=== PATIENT | female | born 1995 | race Caucasian/White ===

== ENCOUNTER 2022-12-21 13:15 | Emergency (ER) | payer OTHER, SELFPAY ==
[2022-12-21 13:17] VITALS: BP 139/105; PULSE 121; RESP 18; TEMP 36.8; O2SAT 100
--- NOTE | 2022-12-21 13:27 | ED.URI ---
HPI - URI/Sore Throat General Chief Complaint: Upper Respiratory Infection Stated Complaint: Sore Throat Time Seen by Provider: 12/21/22 13:35 Source: patient and RN notes reviewed Mode of arrival: ambulatory Limitations: no limitations History of Present Illness HPI Narrative: 27-year-old female presents with concern for sore throat, swollen right tonsil. Reports symptoms started 2 days ago. Reports she had strep throat 2 months ago that she completed antibiotics for. She denies any known sick contacts MD elicited complaint: sore throat Related Data Home Medications Medication Instructions Recorded Confirmed dextroamphetamine-amphetamine 10 12/21/22 mg tablet dextroamphetamine-amphetamine ER PO 12/21/22 25 mg 24hr capsule,extend release (Adderall XR) Allergies Allergy/AdvReac Type Severity Reaction Status Date / Time No Known Allergies Allergy Verified 12/21/22 13:31 Review of Systems Review of Systems: CONSTITUTIONAL: Denies malaise, chills, sweats, or fever. EYES: Denies visual changes, redness, or discharge. ENT: Denies rhinorrhea, congestion, sinus pain, otalgia. Reports sore throat. CARDIOVASCULAR: Denies chest pain, palpitations, or edema. RESPIRATORY: Denies cough. Denies dyspnea. GASTROINTESTINAL: Denies abdominal pain, nausea, vomiting, diarrhea SKIN: Denies rash or itching. MUSCULOSKELETAL: Denies myalgia. NEUROLOGIC: Denies headache. All systems reviewed & are unremarkable except as noted in HPI and below PMFSH Comments At time of signature, agree with nursing past medical, surgical, social and family history. There is no relevant family history pertinent to the presenting complaint Exam Narrative: GENERAL: Well-appearing, well-nourished, and in no acute distress. HEAD: Normocephalic EYES: PERRLA, conjunctivae clear ENT: Nares clear. Mucous membranes moist. TM pearly lawson with sharp light reflex bilaterally; no tragal tenderness. Oropharynx erythematous without lesions. Tonsils enlarged on the right side without exudate, no drooling, no hoarseness, no trismus, uvula midline. NECK: Supple. No lymphadenopathy CHEST: Clear to auscultation, breath sounds equal. No wheezing, rhonchi, rales, or stridor. No respiratory distress, speaks in full sentences. HEART: Regular rate and rhythm. No murmur heard. SKIN: Warm, dry, no rash. NEURO: Alert and oriented x3. PSYCH: Normal mood and affect Course Course Emergency Course: Patient is aware of diagnosis, understands and agrees to treatment plan. Anticipatory guidance given. Patient agrees to follow-up as directed and is aware of reasons to seek care at the emergency department. Portions of this record may have been created with voice recognition software Level of Care: Express Care Visit Vital Signs Vital signs: Reviewed. MDM - URI/Sore Throat MDM Narrative Medical decision making narrative: Differential diagnosis considered: [place] virus, strep pharyngitis, allergic rhinitis, upper respiratory tract infection, sinusitis, rhinosinusitis, nasopharyngitis. viral pharyngitis, otitis media, otitis externa, pneumonia, bronchitis, viral cough syndrome, viral syndrome, and influenza. Exam findings show no acute concerns or changes; patient is non-toxic appearing and is in no distress. Patient is appropriate for outpatient treatment and follow-up. Lab Data Attestation: I reviewed the patient's lab results. Critical Care Time Critical Care Time Critical Care Time: No Discharge Plan Discharge Clinical Impression: Acute streptococcal pharyngitis Patient Disposition: Home, Self-Care Condition: Stable Instructions: Antibiotic Form, Strep Throat (ED) Additional Instructions: -Take the medication as prescribed. Throw away the toothbrush after 24hours of antibiotic. -Eat and drink things that are easy to swallow, like tea or soup, or popsicles to suck on. -Oral rinses such as: Salt water gargles and/or may use topical ane
[2022-12-21 13:32] VITALS: BP 139/105; PULSE 121; RESP 18; TEMP 36.8; O2SAT 100
== END 2022-12-21 13:52 | disposition home or self-care (01) ==
PROVIDERS: Emergency Provider Nurse Practitioner; PCP Family Medicine
DX: J02.0 Streptococcal pharyngitis (principal)
CPT/HCPCS: 87880; 99213; G0463

== ENCOUNTER 2023-11-09 11:15 | Emergency (ER) | payer OTHER, SELFPAY ==
[2023-11-09 11:25] VITALS: BP 125/85; PULSE 106; RESP 16; TEMP 36.8; O2SAT 100
--- NOTE | 2023-11-09 11:32 | ED.EAR ---
HPI - Ear Problem General Chief complaint: Ear Stated complaint: rt ear pain Time Seen by Provider: 11/09/23 11:32 Source: patient Mode of arrival: ambulatory Limitations: no limitations History of Present Illness HPI Narrative: 27-year-old female presents with complaint of a clogged sensation decreased hearing to right ear for the past several days. Has taking Mucinex and Claritin with no relief of symptoms. Afebrile. Not painful all systems reviewed and negative except as noted above. Related Data Home Medications Medication Instructions Recorded Confirmed dextroamphetamine-amphetamine 10 12/21/22 mg tablet dextroamphetamine-amphetamine ER PO 12/21/22 25 mg 24hr capsule,extend release (Adderall XR) Allergies Allergy/AdvReac Type Severity Reaction Status Date / Time No Known Allergies Allergy Verified 11/09/23 11:28 Review of Systems Review of Systems: CONSTITUTIONAL: Denies fever, chills, or sweats. EYES: Denies visual changes, redness, or discharge. ENT: Denies rhinorrhea, congestion, sore throat . Reports decreased hearing and plugged sensation to right ear. CARDIOVASCULAR: Denies chest pain, palpitations, or edema. RESPIRATORY: Denies cough or dyspnea. GASTROINTESTINAL: Denies abdominal pain, nausea, vomiting, or diarrhea. GENITOURINARY: Denies dysuria or hematuria. SKIN: Denies rash or itching. MUSCULOSKELETAL: Denies back pain, joint pain, or myalgia. NEUROLOGIC: Denies headache, numbness, or weakness. PSYCHIATRIC: Denies anxiety or depression. All other systems reviewed are negative, except as documented in HPI. PMFSH Comments At time of signature, agree with nursing past medical, surgical, social and family history. There is no relevant family history pertinent to the presenting complaint. Exam Narrative: GENERAL: This is a well-nourished, well-developed patient, in no apparent distress. HEAD: normocephalic, atraumatic. EYES: PERRL. Sclera clear/white. Vision is grossly intact. EARS: External ears normal, L ear canal normal,moderate amount soft cerumen to R ear canal,after irrigation TMs normal without perforation. Hearing grossly intact. NOSE: External nose normal NECK: Neck supple, non-tender without lymphadenopathy, masses or thyromegaly. CARDIOVASCULAR: Regular rate and rhythm without murmurs, gallops, or rubs. RESPIRATORY: Clear to auscultation. Breath sounds equal bilaterally. No wheezes, rales, or rhonchi. SKIN: warm, Dry, intact with no suspicious lesions or rash, good texture and turgor. NEURO: awake, alert, and oriented to person, place and time. There were no obvious focal neurologic abnormalities. EXTREMITIES: No joint tenderness, effusion, or edema noted. Course Course Level of Care: Express Care Visit Vital Signs Vital signs: Vital Signs Temperature 36.8 C 11/09/23 11:25 Pulse Rate 106 H 11/09/23 11:25 Respiratory Rate 16 11/09/23 11:25 Blood Pressure 125/85 11/09/23 11:25 Pulse Oximetry 100 11/09/23 11:25 Oxygen Delivery Room Air 11/09/23 11:25 Temperature 36.8 C 11/09/23 11:25 Pulse Rate 106 H 11/09/23 11:25 Respiratory Rate 16 11/09/23 11:25 Blood Pressure 125/85 11/09/23 11:25 Pulse Oximetry 100 11/09/23 11:25 Oxygen Delivery Room Air 11/09/23 11:25 Reviewed Procedures Ear Wax Removal Right Ear: Ear Wax Removal Date: 11/09/23 Ear Wax Removal Time: 11:40 Cerumenolytic Used: other (warm water) Results: Re-examined: cerumen removed completely TM Examination: TM(s) intact, normal appearance Ear Canal Exam: atraumatic Patient Tolerated Procedure: well Complications: no problems Technique: ear canal irrigated Medical Decision Making Vital Signs Vital Signs: Vital Signs Temperature 36.8 C 11/09/23 11:25 Pulse Rate 106 H 11/09/23 11:25 Respiratory Rate 16 11/09/23 11:25 Blood Pressure 125/85 11/09/23 11:25 Pulse Ox
== END 2023-11-09 11:44 | disposition home or self-care (01) ==
PROVIDERS: Emergency Provider Nurse Practitioner Family; PCP Family Medicine
DX: H61.21 Impacted cerumen, right ear (principal)
CPT/HCPCS: 69209; 99212; G0463

== ENCOUNTER 2024-06-21 00:29 | Day surgery (SDC) | payer OTHER, SELFPAY ==
[2024-06-12 12:11] VITALS: BMI 22.0
--- NOTE | 2024-06-12 12:18 | PC.NURSE ---
Report to the Outpatient Waiting Room, entrance under the green pavilion located off [facility], at time _0600_ on date _[id number]_. Planned Procedure Time: _0730_.? Time changes happen often and if your time is changed the preop area will call you the afternoon before. - You and your visitor will be asked to self-screen and do not enter if you have any COVID symptoms. Please call surgeon if you need to reschedule. - A mask is optional within the hospital at this time. Patients may have clear liquids (water, carbonated beverages, clear teas, apple juice) until 3 hours prior to surgery with a maximum of 20 ounces. - No food from midnight until time of surgery and no smoking. This includes no chewing gum, candy or mints. Take only the following medications with a SIP of water on the morning of surgery: ____None____ DO NOT STOP ANY OF YOUR OTHER PRESCRIPTION MEDICATIONS PRIOR TO SURGERY EXCEPT THE FOLLOWING Medications to discontinue per physician ___None Date to take last dose Hold all vitamins and supplements for 3 days per anesthesiologist. Please no make-up, nail mauritanian, hairspray, perfume, deodorant, or body powder the day of surgery.? No jewelry (including any body piercings) or valuables the day of surgery, leave them at home.? Please take a shower or bath the night before, or the morning of, surgery with an antibacterial soap.? Wear comfortable, loose fitting clothing.? - Jewelry must be removed prior to entering the operating room.? Rings and piercings that are not removed may be cut off. - The hospital will not accept responsibility for valuables.? - Please leave all valuables, including medications, at home the day of surgery. If you are going home after surgery, a licensed utility driver must drive you home.? - NO public transportation without another adult if you receive anesthesia. - We recommend that an adult stay with you for 24 hours following discharge. - We also recommend that you do not drive, make important decision, drink alcoholic beverages, or take any drugs that were not prescribed by your health care provider for at least 24 hours after your discharge time. Follow any additional instructions given to you from your surgeon. Telephone instructions given to __Haley___and asked if any additional questions and then verbalized understanding. Patient advised to call surgeon office or pre surgery nurse liaison [phone] if any additional questions.
--- OUTSIDE RECORDS SUMMARY | 2024-06-21 00:31 | XMS_ITS | Encounter Summary ---
Author Organization [facility] Address [address] [place] [address] Care Team Providers Care Last Remodeler Repairer Name Role Phone Wang Rosas MD Primary Care Provider Encounter Details Date Type Department Care Team (Late st Contact Info) Description 06/15/2021 MyChart Message Enc [facility] Family Medicine - [place] [address], [address] [place] [address] Wang Rosas MD [address] [place] [address] Medication follow up Social History Tobacco Use Types Packs/Day Years Used Date Smoking Tobacco: Never Smokeless Tobacco: Never Alcohol Use Standard Drinks/Week Comments Yes 0 (1 standard drink = 0.6 oz pur e alcohol) socially PHQ-2 Answer Date Recorded PHQ-2 Score - If the patient scores above 3, please move on to questions 3-9 0 06/16/2021 Comments No Sex and Gender Information Value Date Recorded Sex Assigned at Not on file Legal Sex Female 4:45 PM CDT Gender Identity Not on file Sexual Orientation Not on file COVID-19 Exposure Response Date Recorded In the last month, have you been in contact with someone who was confirmed or suspected to have Coronavirus / COVID-19? No / Unsure 06/15/2021 2:34 PM RAIL SETTER documented as of this encounter Plan of Treatment Not on file documented as of this encounter Visit Diagnoses Not on filedocumented in this encounter Additional Health Concerns Assessment Noted Time PHQ-9 Depression Total Score: 0 03/17/20 21 1:56 PM CDT documented as of this encounter Care Teams Last Remodeler Repairer Relationship Specialty Start Date End Date Wang Rosas MD [address] [address] PCP - General FAMILY PRACTICE 04/04/19 documented as of this encounter
--- OUTSIDE RECORDS SUMMARY | 2024-06-21 00:31 | XMS_ITS | Encounter Summary ---
Author Organization [facility] Address [address] [place] [address] Care Team Providers Care Gang Worker Name Role Phone Wang Rosas MD Primary Care Provider Encounter Details Date Type Department Care Team (Late st Contact Info) Description 09/15/2020 ResoServ Message Enc [facility] Family Medicine - [place] [address] [place] [address] [facility], [facility] Provider Appointment Social History Tobacco Use Types Packs/Day Years Used Date Smoking Tobacco: Never Smokeless Tobacco: Never Alcohol Use Standard Drinks/Week Comments Yes 0 (1 standard drink = 0.6 oz pur e alcohol) socially Comments No Sex and Gender Information Value Date Recorded Sex Assigned at Not on file Legal Sex Female 4:45 PM CDT Gender Identity Not on file Sexual Orientation Not on file COVID-19 Exposure Response Date Recorded In the last month, have you been in contact with someone who was confirmed or suspected to have Coronavirus / COVID-19? No / Unsure 09/04/2020 9:00 AM CDT documented as of this encounter Plan of Treatment Not on file documented as of this encounter Visit Diagnoses Not on filedocumented in this encounter Care Teams Gang Worker Relationship Specialty Start Date End Date Wang Rosas MD [address] [place] [address] PCP - General FAMILY PRACTICE 04/04/19 documented as of this encounter
--- OUTSIDE RECORDS SUMMARY | 2024-06-21 00:31 | XMS_ITS | Encounter Summary ---
Author Organization [facility] Address [address] [place] [address] Care Team Providers Care Cream Hauler Name Role Phone Wang Rosas MD Primary Care Provider Encounter Details Date Type Department Care Team (Late st Contact Info) Description 07/01/2022 Whi Message Enc [facility] Family Medicine - [place] [address], [address] [place] [address] Wang Rosas MD [address] [place] [address] Out of stock meds Social History Tobacco Use Types Packs/Day Years Used Date Smoking Tobacco: Never Smokeless Tobacco: Never Comments:NOT necessary if no n smoker and no 2nd hand smoke Alcohol Use Standard Drinks/Week Comments Yes 0 (1 standard drink = 0.6 oz pur e alcohol) socially PHQ-2 Answer Date Recorded Patient Health Questionnaire-2 Score 0 05/31/2022 Comments No Sex and Gender Information Value Date Recorded Sex Assigned at Not on file Legal Sex Female 4:45 PM CDT Gender Identity Not on file Sexual Orientation Not on file documented as of this encounter Progress Notes * Diann Morrison MA - 07/06/2022 8:52 AM CST Saber [employer] message sent inform pt that Adderall XR 25mg sent to Pharmacy OR ACCOUNTING SPECIALIST * Diann Morrison MA - 07/05/2022 2:22 PM CSTFrom: Katja Sesayte To: Dr. Wang Rosas Sent: 07/01/2022 12:38 PM SENIOR ACCOUNTING SPECIALIST Subject: Out of stock meds [facility] has been out of stock of the 10mg tablets since it???s been called in and they are unsurewhen they will be getting them. Could we try to call it into the [facility] instead? Or is there anyway my 25mg XR???s could be filled tomorrow so I am not without on Tuesday - I am not sure what is possible but figured I???d mention it. OR ACCOUNTING SPECIALIST documented in this encounter Plan of Treatment Not on file documented as of this encounter Visit Diagnoses Not on filedocumented in this encounter Additional Health Concerns Assessment Noted Time PHQ-9 Depression Total Score: 0 06/16/19 6:52 AM SENIOR ACCOUNTING SPECIALIST documented as of this encounter Care Teams Cream Hauler Relationship Specialty Start Date End Date Wang Rosas MD [address] [address] PCP - General FAMILY PRACTICE 04/04/19 documented as of this encounter
--- OUTSIDE RECORDS SUMMARY | 2024-06-21 00:31 | XMS_ITS | Encounter Summary ---
Author Organization [facility] Address [address] [place] [address] Care Team Providers Care Seed Expert Name Role Phone Wang Rosas MD Primary Care Provider Encounter Details Date Type Department Care Team (Late st Contact Info) Description 11/08/2023 Fatigue Sciencet Message Enc [facility] Family Medicine - [place] [address], [address] [place] [address] Wang Rosas MD [address] [place] [address] Out of Stock Meds Social History Tobacco Use Types Packs/Day Years Used Date Smoking Tobacco: Never Passive Smoke Exposure: Never Smokeless Tobacco: Never Comments:NOT necessary if no n smoker and no 2nd hand smoke Alcohol Use Standard Drinks/Week Comments Yes 0 (1 standard drink = 0.6 oz pur e alcohol) socially PHQ-2 Answer Date Recorded Patient Health Questionnaire-2 Score 0 05/26/2023 Comments No Sex and Gender Information Value Date Recorded Sex Assigned at Not on file Legal Sex Female 4:45 PM CDT Gender Identity Not on file Sexual Orientation Not on file documented as of this encounter Plan of Treatment Not on file documented as of this encounter Visit Diagnoses Not on filedocumented in this encounter Additional Health Concerns Assessment Noted Time PHQ-9 Depression Total Score: 0 06/16/19 22 6:52 AM END PACKER documented as of this encounter Care Teams Seed Expert Relationship Specialty Start Date End Date Wang Rosas MD [address] [id number] PCP - General FAMILY PRACTICE 04/04/19 documented as of this encounter
--- OUTSIDE RECORDS SUMMARY | 2024-06-21 00:31 | XMS_ITS | Encounter Summary ---
Author Organization [facility] Address [address] [place] [address] Care Team Providers Care Footwear Sales Coordinator Name Role Phone Wang Rosas MD Primary Care Provider Encounter Details Date Type Department Care Team (Late st Contact Info) Description 08/13/2021 AVIcodet Message Enc [facility] Family Medicine - [place] [address], [address] [place] [address] Wang Rosas MD [address] [place] [address] Medication Unavailable Social History Tobacco Use Types Packs/Day Years Used Date Smoking Tobacco: Never Smokeless Tobacco: Never Comments:physician will disc uss if necessary Alcohol Use Standard Drinks/Week Comments Yes 0 [...] Total Score: 0 06/16/19 22 6:52 AM ACCOUNT ASSISTANT documented as of this encounter Care Teams Footwear Sales Coordinator Relationship Specialty Start Date End Date Wang Rosas MD [address] [address] PCP - General FAMILY PRACTICE 04/04/19 documented as of this encounter
--- OUTSIDE RECORDS SUMMARY | 2024-06-21 00:31 | XMS_ITS | Encounter Summary ---
Author Organization [facility] Address [address] [place] [address] Care Team Providers Care Telehealth Coordinator Name Role Phone Wang Rosas MD Primary Care Provider Encounter Details Date Type Department Care Team (Late st Contact Info) Description 10/23/2020 MyChart Message Enc [facility] Family Medicine - [place] [address], [address] [place] [address] Wang Rosas MD [address] [place], [place] [id number] RE: Medication Questions Social History Tobacco Use Types Packs/Day Years [...] on filedocumented in this encounter Care Teams Telehealth Coordinator Relationship Specialty Start Date End Date Wang Rosas MD [address] [place], [place] [id number] PCP - General FAMILY PRACTICE 04/04/19 documented as of this encounter
--- OUTSIDE RECORDS SUMMARY | 2024-06-21 00:31 | XMS_ITS | Encounter Summary ---
Author Organization [facility] Address [address] [place] [address] Care Team Providers Care Baler Operator Name Role Phone Wang Rosas MD Primary Care Provider Encounter Details Date Type Department Care Team (Late st Contact Info) Description 07/06/2022 BlueVine Message Enc [facility] Family Medicine - [place] [address] , [address] [place] [address] [facility] Provider refill request Social History Tobacco Use Types Packs/Day Years [...] Total Score: 0 06/16/19 22 6:52 AM CAREER BASED INTERVENTION COORDINATOR documented as of this encounter Care Teams Baler Operator Relationship Specialty Start Date End Date Wang Rosas MD [address] [place] [address] PCP - General FAMILY PRACTICE 04/04/19 documented as of this encounter
--- OUTSIDE RECORDS SUMMARY | 2024-06-21 00:31 | XMS_ITS | Clinical Summary ---
Author Organization [facility] Address [facility] [place] [address] Care Team Providers Care General Lithographic Worker Name Role Phone Wang Rosas MD Primary Care Provider Allergies No known active allergies Medications fluticasone propionate 50 MCG/ACT nasal sprayIndications: Seasonal allergic rhinitis due to pollen 1 spray by Each Nostril route daily. 48 g 3 1 Active loratadine 10 MG tablet Take 1 tablet (10 mg total) by mouth daily. Active montelukast 10 MG tabletIndications :Seasonal allergic rhinitis due to pollen Take 1 tablet (10 mg total) by mouth nightly at bedtime. 90 tablet 3 1 Active desogestrel-ethin yl estradiol (KARIVA) 0.15-0.02/0.01 MG (5) tabletIndications :Encounter for surveillance of contraceptive pills Take 1 tablet by mouth daily. 84 tablet 3 3 Active amphetamine-dextr oamphetamine XR (ADDERALL XR) 25 MG 24 hr capsuleIndication s:Attention deficit disorder (ADD) without hyperactivity Take 1 capsule (25 mg total) by mouth every morning. 30 capsule 5 Active amphetamine-dextr oamphetamine (ADDERALL) 10 MG tabletIndications :Attention deficit disorder (ADD) without hyperactivity Take 1 tablet (10 mg total) by mouth daily. To be taken in PM 30 tablet 5 Active amphetamine-dextr oamphetamine XR (ADDERALL XR) 25 MG 24 hr capsuleIndication s:Attention deficit disorder (ADD) without hyperactivity Take 1 capsule (25 mg total) by mouth every morning. 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 To be taken in PM 30 tablet 5 06/19/19 25 Discontinu ed(Reorder ) Active Problems Problem Noted Date Diagnosed Date Encounter for surveillance o f vaginal ring hormonal contraceptive device 06/16/2021 Vitamin D deficiency 07/24/2019 Attention deficit disorder (ADD) without hyperac tivity 04/06/2019 Seasonal allergic rhinitis due to pollen 019 Anxious mood 04/06/2019 Resolved Problems Problem Noted Date Diagnosed Date Resolved Date Routine general medical exam ination at a health care facility 01/09/2020 01/25/2020 Encounters Date Type Department Care Team Description 04/19/2024 7:00 AM BURIAL AGENT Telemedicine [facility] Family Medicine - [address], [address] [place] [address] Wang Rosas MD Follow Up (MED F/U ADHD ) from Last 3 Months Immunizations Name Administration Dates Next Due Fluzone 6 Months+ Quad (0.5 mL Prefilled Syringe ) 02/06/2020 PFIZER COVID-19 (ORIGINAL FO RMULATION, PURPLE CAP) mRNA, LNP-S, PF, 30 MCG/0.3 ML DOSE 09/04/2020,08/14/2020 Tdap (Adacel) 01/09/2020 Tdap (Boostrix) 11/02/2018 Family History Medical History Relation Comments Hypertension Father Heart Disease Maternal Grandmother Stroke Paternal Grandfather Cancer Paternal Grandmother Seizures Paternal Grandmother Relation Status Comments Father Alive Maternal Grandmother Mother Alive Paternal Grandfather Paternal Grandmother Social History Tobacco Use Types Packs/Day Years Used Date Smoking Tobacco: Never Passive Smoke Exposure: Never Smokeless Tobacco: Never Tobacco Cessation:Counseling Given: No Comments:NOT necessary if non smoker and no 2nd hand smoke Alcohol Use Standard Drinks/Week Comments Yes 0 (1 standard drink = 0.6 oz pur e alcohol) socially PHQ-2 Answer Date Recorded Patient Health Questionnaire-2 Score 0 04/19/2024 Comments No Sex and Gender Information Value Date Recorded Sex Assigned at Not on file Legal Sex Female 4:45 PM CDT Gender Identity Not on file Sexual Orientation Not on file Last Filed Vital Signs Vital Sign Reading Time Taken Comments Blood Pressure 108/71 08/24/2023 8:01 AM CDT Pulse 100 08/24/2023 8:01 AM CDT Temperature 37 C (98.6 F) 08/24/2023 8:01 AM CDT Respiratory Rate 16 11/26/2022 7:34 AM CDT Oxygen Saturation 100% 08/24/2023 8:01 AM CDT Inhaled Oxygen Concentration - - Weight 58.2 kg (128 lb 6.4 oz) 08/24/2023 8:01 A M CDT Height 160 cm (5' 3 ) 11/26/2022 7:34 AM CDT Body Mass Index 22.75 11/26/2022 7:34 AM CDT Plan of Treatment Health Maintenance Due Date Last Done Comments Hepatitis C 12/20/2013 Hepatitis B Vaccines (1 of 3 - 19+ 3-dose series) 12/20/2014 Annual Physical 01/08/2021 01/09/2020 Cervical Cancer Screening Pa p Smear (Age 21 to 29) Every 3 Years 04/08/2023 04/08/2020, 04/02/2019 Cervical Cancer Screening 04/08/2023 COVID-19 Vaccine (3 - 2023-2 5 season) 2024 09/04/2020, 08/14/2020 Influenza Adult (#1) 2024 02/06/2020 PHQ-2 (Physician [place]) 05/16/2024 04/19/2024 DTaP, Tdap and Td Vaccines ( 3 - Td or Tdap) 01/08/2030 01/09/2020, 11/02/2018 HPV Vaccines Aged Out No longer eligi ble based on patient's age to complete this topic Meningococcal B Vaccine Aged Out No l onger eligible based on patient's age to complete this topic Meningococcal Vaccine Aged Out No yessenia sheree eligible based on patient's age to complete this topic Pneumococcal Vaccine: Pediatrics (0 to 5 Years) and At-Risk Patients (6 to 64 Years) Aged Out No longer eligible b ased on patient's age to complete this topic RSV Immunizations Under 20 Months Aged Out No longer eligible b ased on patient's age to complete this topic Procedures Procedure Name Priority Date/Time Associated Diagnosis Comments OUTSIDE CYTOPATH CERV/VAG INTERPRET (PAP) 04/08/2020 from Last 3 Months or Most Recently Relevant to Health Maintenance Results * OUTSIDE CYTOPATH VAG/CERV PAP WITH HPV (04/08/2020) 04/08/2020 Narrative 04/08/2020 Ordered by an unspecified provider. us Documents Scanned SCANNING Final Result from Last 3 Months or Most Recently Relevant to Health Maintenance Insurance [facility] [place] [id number] Care Teams General Lithographic Worker Relationship Specialty Start Date End Date Wang Rosas MD [address] [address] PCP - General FAMILY PRACTICE 04/04/19
--- OUTSIDE RECORDS SUMMARY | 2024-06-21 00:31 | XMS_ITS | Encounter Summary ---
Author Organization [facility] Address [address] [place] [address] Care Team Providers Care Configuration Management Manager Name Role Phone Wang Rosas MD Primary Care Provider Encounter Details Date Type Department Care Team (Late st Contact Info) Description 12/17/2021 DoseMe Message Enc [facility] Medical Group Family Medicine - [place] [address] , [address] [place] [address] Jayne, [facility] Provider Prescription request Social History Tobacco Use Types Packs/Day Years Used Date Smoking Tobacco: Never Smokeless Tobacco: Never Comments:physician will disc uss if necessary Alcohol Use Standard Drinks/Week Comments Yes 0 (1 standard drink = 0.6 oz pur e alcohol) socially PHQ-2 Answer Date Recorded PHQ-2 Score - If the patient scores above 3, please move on to questions 3-9 0 12/10/2021 Comments No Sex and Gender Information Value [...] Total Score: 0 06/16/19 22 6:52 AM DIRECTOR OF MEDICAL STAFF SERVICES documented as of this encounter Care Teams Configuration Management Manager Relationship Specialty Start Date End Date Wang Rosas MD [address] [place] [address] PCP - General FAMILY PRACTICE 04/04/19 documented as of this encounter
--- OUTSIDE RECORDS SUMMARY | 2024-06-21 00:31 | XMS_ITS | Clinical Summary ---
Author Organization [facility] Address [address] [place] [address] Care Team Providers Care Executive Marketing Assistant Name Role Phone Wang Rosas MD Primary Care Provider +1- [phone] Allergies No known active allergies Medications lidocaine (LIDODERM) 5 % Place 1 patch on the skin daily for 5 days Remove & discard patch within 12 hours or as directed by . 5 patch 04/13/2022 Active cyclobenzaprine (FLEXERIL) 10 mg tabletIndicatio ns:Muscle Spasm Take 1 tablet (10 mg total) by mouth 2 (two) times a day as needed for muscle spasms for up to 6 doses 6 tablet 04/13/2022 Active naproxen (NAPROSYN) 375 mg tabletIndicatio ns:Pain Take 1 tablet (375 mg total) by mouth 2 (two) times a day with meals for 5 days 10 tablet 04/13/2022 Active Social History Tobacco Use Types Packs/Day Years Used Date Smoking Tobacco: Never Smokeless Tobacco: Never Tobacco Cessation:Counseling Given: Not Answered Alcohol Use Standard Drinks/Week Comments Not Currently 0 (1 standard drink = 0.6 oz pur e alcohol) Personal Safety Answer Date Recorded Getting School Help Needed Not on file 05/04 Comments No Sex and Gender Information Value Date Recorded Sex Assigned at Not on file Legal Sex Female 8:37 PM PARI MUTUEL CLERK Gender Identity Not on file Sexual Orientation Not on file Obstetrics History Last Filed Vital Signs Vital Sign Reading Time Taken Comments Blood Pressure 136/95 04/13/2022 5:40 PM PARI MUTUEL CLERK Pulse 119 04/13/2022 5:40 PM PARI MUTUEL CLERK Temperature 36.3 C (97.4 F) 04/13/2022 5:40 PM PARI MUTUEL CLERK Respiratory Rate 18 04/13/2022 5:40 PM PARI MUTUEL CLERK Oxygen Saturation 99% 04/13/2022 5:40 PM PARI MUTUEL CLERK Inhaled Oxygen Concentration - - Weight 60.7 kg (133 lb 13.1 oz) 04/13/2022 5:40 PM PARI MUTUEL CLERK Height 162.6 cm (5' 4 ) 04/13/2022 5:40 PM PARI MUTUEL CLERK Body Mass Index 22.97 04/13/2022 5:40 PM PARI MUTUEL CLERK Plan of Treatment Health Maintenance Due Date Last Done Comments Cervical Cancer Screening 1995 Depression Screening 1995 Hepatitis C Screening 1995 Varicella Vaccines (1 of 2 - 13+ 2-dose series) 12/20/2008 Hepatitis B Screening 12/20/2013 Regular Well Visit/Exam 18-64 12/20/2013 Covid-19 Vaccine (4 - 2023-2 5 season) 2024 05/19/2021, 09/04/2020, 08/14/2020 Influenza Vaccine (#1) 2024 , 02/06/2020 DTaP/Tdap/Td Vaccine (4 - Td or Tdap) 01/08/2030 01/09/2020, 11/02/2018, 11/02/2018 HPV Vaccines Aged Out No longer eligi ble based on patient's age to complete this topic Pneumococcal vaccine <65 Aged Out No longer eligible based on patient's age to complete this topic Insurance [employer] * Guarantor: LISETTE KNOX Account Type Relation to Patient Date of Phone Billing Address [employer] Liability Unverified Proxy [address] [place] [phone] MRA Care Teams Executive Marketing Assistant Relationship Specialty Start Date End Date Wang Rosas MD [address] [facility] [address] [place], [place] [id number] PCP - General Family Medicine 04/13/22
--- OUTSIDE RECORDS SUMMARY | 2024-06-21 00:31 | XMS_ITS | Encounter Summary ---
Author Organization [facility] Address [address] [place] [address] Care Team Providers Care Student Services Coordinator Name Role Phone Wang Rosas MD Primary Care Provider Encounter Details Date Type Department Care Team (Late st Contact Info) Description 03/08/2022 Quad/Graphicst Message Enc [facility] Medical Group Family Medicine - [place] [address], [address] [place] [address] Wang Rosas MD [address] [place] [address] 3 month follow up Social History Tobacco Use Types Packs/Day Years Used Date Smoking Tobacco: Never Smokeless Tobacco: Never Comments:physician will disc uss if necessary Alcohol Use Standard Drinks/Week Comments Yes 0 (1 standard drink = 0.6 oz pur e alcohol) socially PHQ-2 Answer Date Recorded PHQ-2 Score - If the patient scores above 3, please move on to questions 3-9 0 03/10/2022 Comments No Sex and Gender Information Value [...] Total Score: 0 06/16/19 22 6:52 AM TENSION MACHINE OPERATOR documented as of this encounter Care Teams Student Services Coordinator Relationship Specialty Start Date End Date Wang Rosas MD [address] [address] PCP - General FAMILY PRACTICE 04/04/19 documented as of this encounter
--- OUTSIDE RECORDS SUMMARY | 2024-06-21 00:31 | XMS_ITS | Encounter Summary ---
Author Organization [facility] Address [address] [place] [address] Care Team Providers Care Manager Beverage Name Role Phone Wang Rosas MD Primary Care Provider Encounter Details Date Type Department Care Team (Late st Contact Info) Description 06/04/2022 MyCA&E Complete Home Servicest Message Enc [facility] Medical Group Family Medicine - [place] [address], [address] [place] [address] Wang Rosas MD [address] [place] [address] Recent request Social History Tobacco Use Types Packs/Day [...] as of this encounter Progress Notes * Sarah Vinson MA - 06/04/2022 1:07 PM CST Last office visit at this office:Telemedicine on 05/31/[address] Rosas Future appointment scheduled: No future appointments. SPECIALIST * Sarah Vinson MA - 06/04/2022 1:05 PM CSTFrom: Katja Alonso To: Dr. Wang Rosas Sent: 06/04/2022 11:58 AM CRM SPECIALIST Subject: Recent request Hi! I was just checking to see if the 25mg adderall prescription could be called in today so I could pick it up on my way home from work. I should???ve asked during my appointment with you on Tuesday but didn???t even realize I was low on them at the time. I???m sorry. SPECIALIST documented in this encounter Plan of Treatment Not on file documented as of this encounter Visit Diagnoses Diagnosis Attention deficit disorder (ADD) without hyperactivity documented in this encounter Additional Health Concerns Assessment Noted Time PHQ-9 Depression Total Score: 0 06/16/19 22 6:52 AM CRM SPECIALIST documented as of this encounter Care Teams Manager Beverage Relationship Specialty Start Date End Date Wang Rosas MD [address] [address] PCP - General FAMILY PRACTICE 04/04/19 documented as of this encounter
--- OUTSIDE RECORDS SUMMARY | 2024-06-21 00:31 | XMS_ITS | Referral Summary ---
Author Organization [facility] Address [address] [place] [address] Care Team Providers Care Thread Separator Name Role Phone Wang Rosas MD Primary Care Provider +1- [phone] Allergies No known active allergies Medications lidocaine [...] on file Legal Sex Female 8:37 PM CERTIFIED PHYSICIAN'S ASSISTANT Gender Identity Not on file Sexual Orientation Not on file Last Filed Vital Signs Vital Sign Reading Time Taken Comments Blood Pressure 136/95 04/13/2022 5:40 PM CERTIFIED PHYSICIAN'S ASSISTANT Pulse 119 04/13/2022 5:40 PM CERTIFIED PHYSICIAN'S ASSISTANT Temperature 36.3 C (97.4 F) 04/13/2022 5:40 PM CERTIFIED PHYSICIAN'S ASSISTANT Respiratory Rate 18 04/13/2022 5:40 PM CERTIFIED PHYSICIAN'S ASSISTANT Oxygen Saturation 99% 04/13/2022 5:40 PM CERTIFIED PHYSICIAN'S ASSISTANT Inhaled Oxygen Concentration - - Weight 60.7 kg (133 lb 13.1 oz) 04/13/2022 5:40 PM CERTIFIED PHYSICIAN'S ASSISTANT Height 162.6 cm (5' 4 ) 04/13/2022 5:40 PM CERTIFIED PHYSICIAN'S ASSISTANT Body Mass Index 22.97 04/13/2022 5:40 PM CERTIFIED PHYSICIAN'S ASSISTANT Plan of Treatment Not on file Insurance [facility] Address: [place] [address] * Guarantor: LISETTE KNOX Account Type Relation to Patient Date of Phone Billing Address [employer] Liability Unverified Proxy [address] [place] [id number] MRA Care Teams Thread Separator Relationship Specialty Start Date End Date Wang Rosas MD [address] [facility] [address] [place] [address] PCP - General Family Medicine 04/13/22
--- OUTSIDE RECORDS SUMMARY | 2024-06-21 00:31 | XMS_ITS | Encounter Summary ---
Author Organization [facility] Address [address] [place] [address] Care Team Providers Care Lisw Name Role Phone Wang Rosas MD Primary Care Provider Encounter Details Date Type Department Care Team (Late st Contact Info) Description 06/15/2021 MyChart Message Enc [facility] Family Medicine - [place] [address], [address] [place] [address] Wang Rosas MD [address] [place] [address] medication Social History Tobacco Use Types Packs/Day Years [...] COVID-19? No / Unsure 06/15/2021 2:34 PM AUTO PORTER documented as of this encounter Progress Notes * Sarah Vinson MA - 06/15/2021 1:44 PM CSTFrom: Katja Alonso To: Dr. Wang Rosas Sent: 06/15/2021 12:19 PM AUTO PORTER Subject: medication Hi! I just spoke to someone at the front line leader and i can???t come in for my follow up until next Tuesday which I have scheduled already but am out of my medications. Is there anyway i can still have those filled prior to my follow up with you next week? PORTER documented in this encounter Plan of Treatment Not on file documented as of this encounter Visit Diagnoses Not on filedocumented in this encounter Additional Health Concerns Assessment Noted Time PHQ-9 Depression Total Score: 0 03/17/20 21 1:56 PM CDT documented as of this encounter Care Teams Lisw Relationship Specialty Start Date End Date Wang Rosas MD [address] [address] PCP - General FAMILY PRACTICE 04/04/19 documented as of this encounter
--- OUTSIDE RECORDS SUMMARY | 2024-06-21 00:31 | XMS_ITS | Encounter Summary ---
Author Organization [facility] Address [address] [place] [address] Care Team Providers Care Blade Operator Name Role Phone Wang Rosas MD Primary Care Provider Encounter Details Date Type Department Care Team (Late st Contact Info) Description 12/16/2021 MyChart Message Enc [facility] Family Medicine - [place] [address] [place] [address] Wang Rosas MD [address] [place] [address] Out of stock med at pharmacy Social History Tobacco Use Types Packs/Day Years [...] Total Score: 0 06/16/19 22 6:52 AM SEAMING MACHINE OPERATOR documented as of this encounter Care Teams Blade Operator Relationship Specialty Start Date End Date Wang Rosas MD [address] [id number] PCP - General FAMILY PRACTICE 04/04/19 documented as of this encounter
--- OUTSIDE RECORDS SUMMARY | 2024-06-21 00:31 | XMS_ITS | Encounter Summary ---
Author Organization [facility] Address [address] [place] [address] Care Team Providers Care Recovery Rn Name Role Phone Wang Rosas MD Primary Care Provider Encounter Details Date Type Department Care Team (Late st Contact Info) Description 12/07/2021 McPhyt Message Enc [facility] Medical Group Family Medicine - [place] [address] [place] [address] Wang Rosas MD [address] [place] [address] Appointment Social History Tobacco Use Types Packs/Day [...] Total Score: 0 06/16/19 22 6:52 AM CHEESE WRAPPER documented as of this encounter Care Teams Recovery Rn Relationship Specialty Start Date End Date Wang Rosas MD [address] [address] PCP - General FAMILY PRACTICE 04/04/19 documented as of this encounter
--- NOTE | 2024-06-21 06:54 | WPDANESEPPF ---
Anes - Initial Pre Proc Eval Procedure: Operation Date: 06/21/24 07:30 Proposed Procedures p Bilateral Breast Augmentation - Jax Palafox MD s Bilateral Breast Mastopexy - Jax Palafox MD Date/Time: 06/21/24 06:54 Surgeon: Jax Palafox MD Pre Op Diagnosis: Micromastia, Breast Ptosis Patient Data Age: 28 Gender: F Height: 1.63 m Weight: 58.2 kg Allergies Allergy/AdvReac Type Severity Reaction Status Date / Time No Known Allergies Allergy Verified 06/12/24 12:10 Home Medications ?Medication ?Instructions ?Recorded ?Confirmed ?Type dextroamphetamine-amphetamine 10 10 mg PO DAILY 12/21/22 06/12/24 History mg tablet dextroamphetamine-amphetamine ER 25 mg PO DAILY 12/21/22 06/12/24 History 25 mg 24hr capsule,extend release (Adderall XR) Laboratory Tests 06/21/24 06:20 Cotinine Pending Patient hx anesthesia problems: none Family hx anesthesia problems: none Results Review: All pre-operative results and documents have been reviewed as part of the pre-operative evaluation. [facility] Social History Social History Smoking status: Never smoker Alcohol intake: current Living arrangements: with family Spiritual care concerns: No Anes - Eval Final PreProcedure Day of Procedure 06/21/24 06:54 Patient weight: normal Heart: regular rate and rhythm Lungs: clear to auscultation Airway: Mallampati scale class 1 Neurological: alert and oriented Last oral intake: >/= 8 hours ASA classification: I Emergent: no Anesthetic plan: proceed Anesthesia type and monitoring: general LMA and standard monitoring Results Review: All pre-operative results and documents have been reviewed as part of the pre-operative evaluation. Informed Consent: The patient's anesthetic plan and its attendant risks and benefits were discussed with the patient/family/POA. Questions were solicited and answers provided to the satisfaction of the patient/family/POA.
[2024-06-21 06:56] VITALS: BP 113/76; PULSE 110; TEMP 36.6; O2SAT 100; BMI 23.0
--- NOTE | 2024-06-21 06:57 | WPDHPUPDATE1 ---
History and Physical Update Update Date/Time: 06/21/24 06:57 History and Physical has been reviewed, including an updated exam of the patient. There are NO changes in the patient's condition. Risks, benefits, and alternatives have been discussed and questions answered. Patient agrees to proceed with procedure.
--- NOTE | 2024-06-21 06:57 | W.PM.PROC2 ---
Procedure Note - Detailed Date of Procedure 06/21/24 Pre-op Diagnosis Micromastia, Breast Ptosis Post-op Diagnosis Same Procedure Performed Bilateral augmentation mastopexy Surgeon Jax Palafox MD Anesthesia General Findings Inverted T Superior pedicle Bilateral Aron [place] Softtouch [cc] Subfascial Right - REF# [ref] SN [sn] Left - REF# [ref] SN [sn] Description of Procedure She is here today for bilateral breast augmentation mastopexy. Previously and again today the risks, benefits, alternatives were discussed in extensive detail. I wanted her to be very realistic about the risks involved as well as expectations. We discussed aftercare and what to monitor for. Made sure answered all of her questions to her satisfaction today and consent was obtained. Marked in the preoperative holding area with their verification. The patient was taken to the operating room placed supine on the operating table. Anesthesia was provided by anesthesiology. A surgical time-out was taken. We cleansed the skin and 1% lidocaine and 0.25% Marcaine with epinephrine was used anesthetize as a field block. She was prepped and draped in a standard sterile fashion. Tegaderm nipple [place] were placed. A 15 blade used to make an incision just superior to the inframammary fold leaving a cusp of de-epithelized tissue at the t junction. Dissection was continued until the chest wall as identified. I elevated a subfascial pocket in the appropriate dimensions based on our preoperative planning for the implant. I then copiously irrigated with saline solution and verified a strict hemostasis. Next the use a triple antibiotic and Betadine containing solution to irrigate the pocket. I washed my gloves with the triple antibiotic and Betadine solution. We washed the implant immediately upon opening it with this solution and only opened it when we needed it. I used implant funnel and no-touch technique. The implant was introduced into the pocket using the funnel. Having verified positioning of the implant this was closed using 2-0 PDS. I tailor tacked the breast into position. Placed her in a sitting position. Verified the nipple-areolar location based on preoperative planning as well as intraoperative observations and measurements in full agreement. She was placed supine. I de-epithelialized the pedicle. I then removed the inferior central portion of the breast need making sure the implant was well protected. I elevated medial and lateral tissue flaps as well for planned closure. I closed along the IMF with 2-0 Stratafix. Along the vertical with 2-0 PDS. I closed around the areola with 3-0 strata fix. 3-0 Monocryl along the vertical. 3-0 Stratafix along the IMF. I finally closed everything with running subcuticular 4-0 Monocryl and tissue glue. Fluffs and surgical bra were placed. Estimated Blood Loss 50 Drains No Packing No Pathology None sent Complications No immediate complications Condition Stable Disposition PACU
[2024-06-21 06:59] LABS: Urine Cotinine POSITIVE
[2024-06-21] MEDS: TRANEXAMIC ACID 1,000MG/ISO100 1,000 MG/100 ML BAG 200 MG IVPB (06:59)
[2024-06-21 07:01] LABS: BEDSIDEPREGUCG Negative (Negative)
== END 2024-06-21 07:43 | disposition home or self-care (01) ==
PROVIDERS: PCP Family Medicine; Visit Provider Surgery Plastic and Reconstructive Surgery
PROC: (CPT 19316; 2024-06-21 07:30)
DX: Z41.1 Encounter for cosmetic surgery (principal); Z53.9 Procedure and treatment not carried out, unspecified reason
CPT/HCPCS: 80307; 99212; G0463; J0171; J0690; J1580; J2003; J7120